=== PATIENT | male | born 1980 | race Hispanic/Latino ===

== ENCOUNTER 2020-02-02 09:44 | Outpatient (CLI) | payer BC, OTHER ==
--- NOTE | 2020-02-02 11:04 | RAD ---
PA AND LATERAL VIEWS CHEST: Date: 02/02/2020 HISTORY: COVID-19 positive. Other viral pneumonia. FINDINGS: The heart size is normal. The lungs are expanded without lobar consolidation, pneumothoraces, or pleu ral effusions. No acute osseous abnormalities are seen. IMPRESSION: No radiographic evidence of acute cardiopulmonary process. Chest radiographs may be falsely negative in the setting of COVID-19 pneumonia. POS: OFF
== END 2020-02-02 09:45 | disposition home or self-care (01) ==
LOC: BICRAD 09:44
PROVIDERS: ATTEND Physician Assistant
DX: U07.1 COVID-19 (principal); J12.89 Other viral pneumonia
CPT/HCPCS: 71046